=== PATIENT | male | born 1940 | race Caucasian/White ===

== ENCOUNTER 2019-04-04 18:48 | Observation (INO) ==
[2019-04-04] MEDS ORDERED: *HR* OxyCODONE/APAP 5/325 TABLET PO ONE (20:39)
[2019-04-04 21:53] LABS: Basophils % 0.2 %; Hematocrit 45.6 % (37.5-50.1); Immature Granulocytes % 0.3 % (0-4); Lymphocytes # 0.4 K/mcL (0.6-4.6); Mean Corpuscular HGB Conc 32.9 g/dL (31.6-35.5); Mean Corpuscular Hemoglobin 31.4 pg (28.0-33.3); Mean Corpuscular Volume 95.4 fL (83.0-100.0); Mean Platelet Volume 8.8 fL (9.4-12.4); Monocytes % 0.6 %; Neutrophils # 6.2 K/mcL (1.6-8.9); Platelet Count 168 K/mcL (140-400); Red Blood Count 4.78 M/mcL (4.19-5.50); Red Cell Distribution Width 12.7 % (11.5-14.5); Segmented Neutrophils % 92.9 %; White Blood Count 6.7 K/mcL (4.3-11.1)
[2019-04-04] MEDS ORDERED: QUEtiapine Fumarate 100 MG TABLET PO ONE (22:50)
[2019-04-04] MEDS ORDERED: Lidocaine Jelly 6ml 1 APPL/6 ML JEL.PF.APP TP ONE (22:51)
[2019-04-05] MEDS ORDERED: Naloxone 0.4 MG/ML INJ IVP PRN (02:55)
[2019-04-05 05:22] LABS: Basophils % 0.1 %; Hematocrit 42.6 % (37.5-50.1); Hemoglobin 14.3 g/dL (12.9-16.9); Immature Granulocytes % 0.5 % (0-4); Lymphocytes # 0.7 K/mcL (0.6-4.6); Lymphocytes % 7.9 %; Mean Corpuscular HGB Conc 33.6 g/dL (31.6-35.5); Mean Corpuscular Hemoglobin 31.8 pg (28.0-33.3); Mean Corpuscular Volume 94.7 fL (83.0-100.0); Mean Platelet Volume 8.8 fL (9.4-12.4); Monocytes # 0.3 K/mcL (0.0-1.3); Monocytes % 3.7 %; Neutrophils # 7.8 K/mcL (1.6-8.9); Platelet Count 172 K/mcL (140-400); Red Cell Distribution Width 12.4 % (11.5-14.5); Segmented Neutrophils % 87.8 %; White Blood Count 8.9 K/mcL (4.3-11.1)
[2019-04-05 05:37] LABS: Prothrombin Time 11.6 Seconds (9.4-12.1)
[2019-04-05 05:41] LABS: BUN/Creatinine Ratio 15 (6-26); Blood Urea Nitrogen 20 mg/dL (8-23); Calcium 8.8 mg/dL (8.6-10.3); Carbon Dioxide 22 mEq/L (23-29); Chloride 107 mEq/L (98-107); Glucose 164 mg/dL (70-105); Osmolality,Calculated 290 (280-300); Potassium 4.3 mEq/L (3.5-5.1); Sodium 137 mEq/L (136-145); eGFR For African Americans > 60 (> 60); eGFR For Non-African Americans 52 (> 60)
[2019-04-05 11:47] VITALS: BP 130/92
== END 2019-04-05 12:36 | disposition home or self-care (01) ==
LOC: EMEROOARM 18:48 → CDU 18:48 → SUATTDRO 04-05 00:12 → CDU 04-05 00:35
PROVIDERS: ADMIT Family Medicine; ATTEND Internal Medicine

== ENCOUNTER 2022-04-23 20:44 | Inpatient (IN) ==
[2022-04-24] MEDS ORDERED: Naloxone 0.4 MG/ML INJ IVP PRN (00:43)
[2022-04-24 01:53] LABS: Basophils % 0.2 %; Eosinophils % 0.4 %; Hematocrit 45.3 % (37.5-50.1); Hemoglobin 15.4 g/dL (12.9-16.9); Immature Granulocytes % 0.4 % (0-4); Lymphocytes # 1.8 K/mcL (0.6-4.6); Mean Corpuscular Volume 91.1 fL (83.0-100.0); Mean Platelet Volume 8.7 fL (9.4-12.4); Monocytes # 0.9 K/mcL (0.0-1.3); Monocytes % 10.6 %; Neutrophils # 5.3 K/mcL (1.6-8.9); Platelet Count 170 K/mcL (140-400); Red Blood Count 4.97 M/mcL (4.19-5.50); Red Cell Distribution Width 12.6 % (11.5-14.5); Segmented Neutrophils % 66.4 %
[2022-04-24] MEDS ORDERED: *HR* Dextrose 50 % in Water (Syg) 50 ML SYRINGE IVP PRN (02:15)
[2022-04-24] MEDS ORDERED: D5% in Water 1,000 ML IVC PRN (02:15)
[2022-04-24] MEDS ORDERED: Dextrose Gel 15 GM/37.5 ML TUBE PO PRN ×2 (02:15)
[2022-04-24 02:21] LABS: Albumin 3.4 g/dL (3.5-5.7); Albumin/Globulin Ratio 1.4 (1.1-2.2); Bilirubin,Total 1.2 mg/dL (0.3-1.0); Calcium 8.7 mg/dL (8.6-10.3); Globulin 2.5 g/dL (2.4-3.5); Magnesium 1.8 mg/dL (1.6-2.6); Phosphorous 3.2 mg/dL (2.7-4.5); Potassium 3.2 mEq/L (3.5-5.1); Total Protein 5.9 g/dL (6.4-8.9)
[2022-04-24 02:22] LABS: Creatine Kinase 288 Units/L (30-223); Troponin I < 0.03 ng/mL (< 0.04)
[2022-04-24 03:13] LABS: Adenovirus Not Detected (Not Detect); Coronavirus 229E Not Detected (Not Detect); Coronavirus HKU1 Not Detected (Not Detect); Coronavirus NL63 Not Detected (Not Detect); Coronavirus OC43 Not Detected (Not Detect)
[2022-04-24 03:14] LABS: Bordetella Pertussis Not Detected (Not Detect); Chlamydophila pneumoniae Not Detected (Not Detect); Human Metapneumovirus Not Detected (Not Detect); Human Rhinovirus/Enterovirus Not Detected (Not Detect); Influenza A Subtype 2009 H1 Not Detected (Not Detect); Influenza B Not Detected (Not Detect); Mycoplasma pneumoniae Not Detected (Not Detect); Parainfluenza Virus 1 Not Detected (Not Detect); Parainfluenza Virus 2 Not Detected (Not Detect); Parainfluenza Virus 3 Not Detected (Not Detect); Parainfluenza Virus 4 Not Detected (Not Detect); Respiratory Syncytial Virus Not Detected (Not Detect); SARS-CoV-2 DETECTED (Not Detect)
[2022-04-24] MEDS ORDERED: Potassium Chloride Elixir 20 MEQ/15 ML UDC PO ONE (03:16)
[2022-04-24 04:40] LABS: Bilirubin,Urine Negative (Negative); Blood,Urine Small (Negative); Clarity,Urine Clear (Clear); Color,Urine Colorless (Yellow); Glucose,Urine (UA) Normal (Normal); Ketones,Urine Negative (Negative); Leukocyte Esterase,Urine Negative (Negative); Mucus,Urine Few per lpf (None-Few); Nitrite,Urine Negative (Negative); Protein,Urine Negative (Neg-Trace); Specific Gravity,Urine 1.027 (1.010-1.025); Squamous Epithelial Cell,Urine Few per hpf (None-Few); Urobilinogen,Urine Normal (Normal); WBC,Urine 0-3 per hpf (0-3)
[2022-04-24 04:47] LABS: Thyroid Stimulating Hormone 13.285 mcIU/mL (0.340-5.600)
[2022-04-24] MEDS: *HR* Heparin 5,000 UNIT/ML VIAL SQ SCH ×2 (06:03→17:42)
[2022-04-24] MEDS: lisinopriL 20 MG TABLET PO SCH (09:00)
[2022-04-24] MEDS: amLODIPine 5 MG TABLET PO SCH (15:57)
[2022-04-25 05:27] LABS: Basophils % 0.3 %; Eosinophils % 0.3 %; Hematocrit 45.7 % (37.5-50.1); Immature Granulocytes % 0.3 % (0-4); Lymphocytes # 1.8 K/mcL (0.6-4.6); Lymphocytes % 23.8 %; Mean Corpuscular HGB Conc 32.8 g/dL (31.6-35.5); Mean Corpuscular Hemoglobin 30.4 pg (28.0-33.3); Mean Corpuscular Volume 92.7 fL (83.0-100.0); Mean Platelet Volume 8.7 fL (9.4-12.4); Monocytes # 0.7 K/mcL (0.0-1.3); Monocytes % 9.8 %; Neutrophils # 4.9 K/mcL (1.6-8.9); Platelet Count 172 K/mcL (140-400); Red Blood Count 4.93 M/mcL (4.19-5.50); Red Cell Distribution Width 12.6 % (11.5-14.5); Segmented Neutrophils % 65.5 %; White Blood Count 7.4 K/mcL (4.3-11.1)
[2022-04-25 05:46] LABS: Calcium 8.6 mg/dL (8.6-10.3); Potassium 3.7 mEq/L (3.5-5.1)
[2022-04-25] MEDS: *HR* Heparin 5,000 UNIT/ML VIAL SQ SCH ×2 (06:27→17:03)
[2022-04-25] MEDS: lisinopriL 20 MG TABLET PO SCH (10:00)
[2022-04-25] MEDS: amLODIPine 5 MG TABLET PO SCH (10:00)
[2022-04-25] MEDS ORDERED: Ringers Solution, Lactated 1,000 ML IVC SCH (13:30)
[2022-04-26 02:20] LABS: Calcium 8.5 mg/dL (8.6-10.3); Potassium 3.8 mEq/L (3.5-5.1)
[2022-04-26] MEDS: *HR* Heparin 5,000 UNIT/ML VIAL SQ SCH ×2 (05:45→16:22)
[2022-04-26] MEDS: amLODIPine 5 MG TABLET PO SCH (09:27)
[2022-04-26] MEDS: lisinopriL 20 MG TABLET PO SCH (09:27)
[2022-04-27 03:21] LABS: Calcium 8.4 mg/dL (8.6-10.3); Potassium 4.3 mEq/L (3.5-5.1)
[2022-04-27] MEDS: *HR* Heparin 5,000 UNIT/ML VIAL SQ SCH ×2 (06:09→17:33)
[2022-04-27] MEDS ORDERED: Albuterol 2.5 MG/3 ML NEBULIZER IH PRN (07:51)
[2022-04-27] MEDS: amLODIPine 5 MG TABLET PO SCH (08:00)
[2022-04-27] MEDS: lisinopriL 20 MG TABLET PO SCH (08:00)
[2022-04-27] MEDS: Acetaminophen 325 MG TABLET PO PRN ×2 (08:00→17:33)
[2022-04-28 04:28] LABS: BUN/Creatinine Ratio 25 (6-26); Blood Urea Nitrogen 32 mg/dL (8-23); Calcium 7.3 mg/dL (8.6-10.3); Carbon Dioxide 28 mEq/L (23-29); Chloride 107 mEq/L (98-107); Glucose 132 mg/dL (70-105); Osmolality,Calculated 299 (280-300); Potassium 3.6 mEq/L (3.5-5.1); Sodium 140 mEq/L (136-145); eGFR For African Americans > 60 (> 60); eGFR For Non-African Americans 55 (> 60)
[2022-04-28] MEDS: *HR* Heparin 5,000 UNIT/ML VIAL SQ SCH ×2 (05:16→17:22)
[2022-04-28] MEDS: Acetaminophen 325 MG TABLET PO PRN ×2 (05:16→20:36)
[2022-04-28] MEDS: amLODIPine 5 MG TABLET PO SCH (08:01)
[2022-04-28] MEDS: lisinopriL 20 MG TABLET PO SCH (08:04)
[2022-04-28] MEDS ORDERED: Aspirin Enteric Coated 81 MG Tablet PO SCH (09:00)
[2022-04-28] MEDS ORDERED: QUEtiapine Fumarate 25 MG TABLET PO SCH (09:00)
[2022-04-28] MEDS: Calcium Gluconate 1gm/50mL 1 GM/50 ML BAG IVPB SCH ×2 (09:10→10:00)
[2022-04-28] MEDS: Cholecalciferol (D-3) 1,000 UNIT (25MCG) TABLET PO SCH (09:11)
[2022-04-28] MEDS: QUEtiapine Fumarate 25 MG TABLET PO SCH ×2 (09:11→20:37)
[2022-04-28] MEDS: Cyanocobalamin (B-12) 1,000 MCG TABLET PO SCH (09:11)
[2022-04-28] MEDS: Folic Acid 1 MG TABLET PO SCH (09:12)
[2022-04-28] MEDS ORDERED: QUEtiapine Fumarate 100 MG TABLET PO SCH (21:00)
[2022-04-29 03:48] LABS: Calcium 9.7 mg/dL (8.6-10.3); Potassium 5.3 mEq/L (3.5-5.1)
[2022-04-29] MEDS: *HR* Heparin 5,000 UNIT/ML VIAL SQ SCH ×2 (06:32→17:11)
[2022-04-29] MEDS: Cholecalciferol (D-3) 1,000 UNIT (25MCG) TABLET PO SCH (08:17)
[2022-04-29] MEDS: QUEtiapine Fumarate 25 MG TABLET PO SCH ×2 (08:17→20:40)
[2022-04-29] MEDS: Folic Acid 1 MG TABLET PO SCH (08:17)
[2022-04-29] MEDS: Cyanocobalamin (B-12) 1,000 MCG TABLET PO SCH (08:18)
[2022-04-29] MEDS: amLODIPine 5 MG TABLET PO SCH (08:18)
[2022-04-29] MEDS: lisinopriL 20 MG TABLET PO SCH (08:18)
[2022-04-29] MEDS ORDERED: SODIUM ZIRCONIUM CYCLOSILICATE 5 GM POWD.PACK PO ONE (08:29)
[2022-04-29] MEDS ORDERED: D5% in Water 1,000 ML IVC SCH (08:30)
[2022-04-29 13:53] LABS: Calcium 8.8 mg/dL (8.6-10.3)
[2022-04-30] MEDS: *HR* Heparin 5,000 UNIT/ML VIAL SQ SCH ×2 (05:41→16:51)
[2022-04-30] MEDS: amLODIPine 5 MG TABLET PO SCH ×2 (08:43→08:52)
[2022-04-30] MEDS: Folic Acid 1 MG TABLET PO SCH ×2 (08:43→08:52)
[2022-04-30] MEDS: Cholecalciferol (D-3) 1,000 UNIT (25MCG) TABLET PO SCH ×2 (08:44→08:52)
[2022-04-30] MEDS: QUEtiapine Fumarate 25 MG TABLET PO SCH ×3 (08:44→19:49)
[2022-04-30] MEDS: Acetaminophen 325 MG TABLET PO PRN (08:45)
[2022-04-30] MEDS: Cyanocobalamin (B-12) 1,000 MCG TABLET PO SCH ×2 (08:45→08:52)
[2022-04-30] MEDS: Aspirin Enteric Coated 81 MG Tablet PO SCH (11:06)
[2022-05-01] MEDS: *HR* Heparin 5,000 UNIT/ML VIAL SQ SCH ×2 (05:52→18:34)
[2022-05-01] MEDS: Folic Acid 1 MG TABLET PO SCH (10:23)
[2022-05-01] MEDS: Cholecalciferol (D-3) 1,000 UNIT (25MCG) TABLET PO SCH (10:23)
[2022-05-01] MEDS: amLODIPine 5 MG TABLET PO SCH (10:24)
[2022-05-01] MEDS: Cyanocobalamin (B-12) 1,000 MCG TABLET PO SCH (10:24)
[2022-05-01] MEDS: Aspirin Enteric Coated 81 MG Tablet PO SCH (10:24)
[2022-05-01] MEDS: QUEtiapine Fumarate 25 MG TABLET PO SCH (10:24)
[2022-05-01 11:27] VITALS: O2SAT 94
[2022-05-01 16:52] VITALS: BP 117/86; PULSE 56; TEMP 98.7
== END 2022-05-01 18:36 | DRG 312 ==
LOC: 3BNU → SUATTDRO 23:15 → 2NNU 04-24 00:55 → 2ANU 04-25 04:28 → SUATTDRO 04-26 10:30
PROVIDERS: ADMIT Internal Medicine; ATTEND Internal Medicine